=== PATIENT | female | born 1985 | race Caucasian/White ===

== ENCOUNTER 2020-05-09 12:15 | Outpatient (CLI) | payer BC, SELFPAY ==
--- NOTE | ~2020-05-09 | XR_ITS ---
EXAMINATION: XR knee RT 3V DATE: 05/09/2020 12:39 INDICATION: Right knee pain. TECHNIQUE: 3 views of right knee were obtained. COMPARISON: None. FINDINGS: Bone alignment is normal. No fracture. There is mild osteoarthritis of patellofemoral magdalena rtment. No knee joint effusion. IMPRESSION: 1. Mild right knee osteoarthritis. Reviewed, dictated and finalized at location A.
== END 2020-05-09 12:16 | disposition home or self-care (01) ==
PROVIDERS: PCP Internal Medicine; Visit Provider Clinical Nurse Specialist
DX: M17.11 Unilateral primary osteoarthritis, right knee (principal)
CPT/HCPCS: 73562

== ENCOUNTER 2020-09-08 08:30 | Outpatient (RCR) | payer BC, SELFPAY ==
--- NOTE | 2020-08-08 10:33 | PTOPEVAL ---
PHYSICAL THERAPY EVALUATION Thank you for referring Deb Kemp to [facility].? Deb was evaluated today with a dx of right hip pain/ligament sprain. The patient is scheduled to be seen for therapy? 2 x/week for up to 4 weeks. Please review, sign, date and return this plan of care COREY. I agree with and certify that the following plan of care is medically necessary. Referring Physician Date Attending Provider: Lula Anna NP *PT Outpatient Evaluation Start: 08/08/20 09:31 Freq: Status: Active Protocol: Document 08/08/20 09:31 [facility] (Rec: 08/08/20 10:32 [facility] [email or web address]) Evaluation Information Problem Diagnosis right hip strain Onset May 2020 Cause doing hip exercises and had a sudden pain Additional Evaluation Detail After the exercising, she was stiff for a week then it got better but then began with groin pain. Patient has the pain when sitting cross legged or rotating hip. The patient had been doing yoga but cannot do it now due to pain. 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 Subjective Information Patient reports concern Query Text:As Reported By Patient/ regarding the prognosis and Family diagnosis of her hip pain. Pain Assessment Timing of Pain Assessment Timing of Pain Assessment Assessment Pain Scale Pain Scale Used Numeric (1 - 10) Self Report Pain Assessment Right Groin Reported Pain Level 0 Pain Description Pulling,Tightness Pain Frequency Acute Greatest Pain Intensity 3 Pain Score Pain Score 0: Self Report Interventions Used Pain Relief Interventions Used By Inactivity/Rest,Position Patient Change Lower Extremity Range of Motion General Lower Extremity Range of Motion Reason Not Measured WNL/Left,WNL/Right Gross Lower Extremity Range of Motion hamstring SLR test: 72 degrees Comments left, 66 degrees right knee motion left 0-151, right 0-148 Lower Extremity Muscle Strength Testing General Lower Extremity Strength Reason Not Measured WFL/Left,WFL/Right Gross Lower Extremity Strength generalized deconditioning; fatigues with 15 reps of mild resisted hip exercises Special Tests-Lower Extremity Hip Special Tests Hip Scouring Negative Left,Negative Right NOHEMY Negative Left,
--- NOTE | 2020-09-08 09:28 | PTOPEVAL ---
PHYSICAL THERAPY DISCHARGE SUMMARY Thank you for referring Deb Kemp to [facility].? The patient has been seen for therapy?for 8 visits and goals have been met. Physical therapy is discontinued at this time. Please review, sign, date and return this plan of care COREY. I agree with and certify that the following plan of care is medically necessary. Referring Physician Date Attending Provider: Lula Anna NP *PT Outpatient Evaluation Start: 08/08/20 09:31 Freq: Status: Active Protocol: Document 09/08/20 08:30 [facility] (Rec: 09/08/20 09:28 [facility] [email or web address]) Therapy Assessment Status Assessment Status Discharge Pain Assessment Timing of Pain Assessment Timing of Pain Assessment Assessment Pain Scale Pain Scale Used Numeric (1 - 10) Self Report Pain Assessment Right Groin Reported Pain Level 0 Pain Frequency Acute Other Pain Description only with sitting cross legged Greatest Pain Intensity 2 Pain Score Pain Score 0: Self Report Interventions Used Interventions Used By Clinicians Education,Exercise,Ultrasound Pain Relief Interventions Used By Exercise,Position Change Patient Lower Extremity Range of Motion General Lower Extremity Range of Motion Gross Lower Extremity Range of Motion hamstring SLR test: 72 degrees Comments left, 70 degrees right knee motion left 0-151, right 0-152 Lower Extremity Muscle Strength Testing General Lower Extremity Strength Gross Lower Extremity Strength improved muscle endurance- tolerating 20 reps 2 sets of green tband exercises without visible signs of muscle fatigue. Patient has written exercises-compliance questionable General Exercise General Exercises Exercise Description completed all exercises with Query Text:Record Sets, Reps, green tband x 20 reps as on Resistance, and Position written home program. Less cues required Exercise Comments extensive education for importance of continuing/ compliance with exercises to further develop hip stability to prevent recurring issues. PT Clinical Summary Mrs. Moncada is a 35 y/o female with a dx of left hip/groin sprain. The patient has completed 8 treatments for modalities and exercises for left hip. Pain has decreased,
--- NOTE | 2020-11-19 15:17 | PCPTNOTE ---
Patient was seen on 08/22 and 08/27 with charges entered incorrectly for the US combo treatment. The note is written for US combo and the charge should have been entered as US combo for 1 unit at 10 minutes- both days. The patient charge for 09/05 was also incorrect. On 09/05 the patient was seen for US combo and charged for this but it was not documented in the body of the note. It should be entered as: US combo at 1.5 for 10 minutes as done on prior treatments.
== END 2020-09-08 13:31 | disposition home or self-care (01) ==
LOC: ANHPT 08:30
PROVIDERS: PCP Internal Medicine; Visit Provider Nurse Practitioner
DX: M25.551 Pain in right hip (principal)
CPT/HCPCS: 97032; 97035; 97110; 97161

== ENCOUNTER 2021-08-13 14:12 | Outpatient (CLI) | payer BC, SELFPAY ==
[2021-08-13 14:29] LABS: Basophils Percent Auto 0.7 % (0.2-1.2); Eosinophils Absolute Auto 0.1 K/mm3 (0-0.3); Eosinophils Percent Auto 1.6 % (0-4.4); Hematocrit 40.2 % (37.0-47.0); Hemoglobin 13.3 g/dL (12.0-15.0); Immature Granulocyte Absolute 0.01 K/mm3 (0.00-0.031); Immature Granulocyte Percent A 0.2 % (0-0.5); Lymphocytes Percent Auto 24.5 % (18.3-44.2); Mean Corpuscular HGB Conc 33.1 g/dl (32-36); Mean Corpuscular Hemoglobin 30.5 pg (26-34); Mean Corpuscular Volume 92.2 fl (80-100); Mean Platelet Volume 10.3 fl (7.4-10.4); Monocytes Absolute Auto 0.5 K/mm3 (0.1-0.6); Monocytes Percent Auto 8.8 % (2.6-8.5); Neutrophils Absolute Auto 3.9 K/mm3 (1.3-6.7); Neutrophils Percent Auto 64.2 % (45.5-73.1); Platelet Count Result 255 k/mm3 (150-375); Red Blood Count 4.36 M/mm3 (4.2-5.4); Red Cell Distribution Width 12.5 % (11.5-14.5); White Blood Count 6.1 K/mm3 (4.5-10.0)
[2021-08-13 14:40] LABS: Alanine Aminotransferase 14 U/L (4-35); Albumin Level 4.6 g/dL (3.5-5.1); Alkaline Phosphatase 62 U/L (38-126); Anion Gap 12 mmol/L (8-16); Aspartate Amino Transferase 21 U/L (14-36); Bilirubin,Total 0.4 mg/dL (0.2-1.3); Blood Urea Nitrogen 11 mg/dL (7-17); Carbon Dioxide 26 mmol/L (22-30); Chloride 103 mmol/L (98-107); Cholesterol 162 mg/dL (0-200); Estimated Glomerular Filt Rate > 60; Glucose 89 mg/dL (65-110); HDL Direct 65 mg/dL; Sodium 141 mmol/L (137-145); Triglycerides 103 mg/dL (<150)
[2021-08-13 14:51] LABS: LDL Cholesterol Direct 79 mg/dL
== END 2021-08-13 14:13 | disposition home or self-care (01) ==
LOC: ANHLAB 14:14
PROVIDERS: PCP Internal Medicine; Visit Provider Nurse Practitioner
DX: Z13.228 Encounter for screening for other metabolic disorders (principal); Z13.220 Encounter for screening for lipoid disorders
CPT/HCPCS: 36415; 80053; 80061; 85025

== ENCOUNTER → 2021-10-07 08:29 | Outpatient (CLI) | payer BC, SELFPAY ==
[2021-10-08 02:21] LABS: SARS-CoV-2 RNA PCR Negative
== END ==
PROVIDERS: PCP Internal Medicine; Visit Provider Internal Medicine
DX: Z20.822 Contact with and (suspected) exposure to COVID-19 (principal)
CPT/HCPCS: C9803; U0003; U0005

== ENCOUNTER 2022-08-27 11:28 | Outpatient (CLI) | payer BC, SELFPAY ==
[2022-08-27 11:55] LABS: Basophils Percent Auto 0.8 % (0.2-1.2); Eosinophils Absolute Auto 0.1 K/mm3 (0-0.3); Eosinophils Percent Auto 1.4 % (0-4.4); Hematocrit 38.6 % (37.0-47.0); Hemoglobin 12.9 g/dL (12.0-15.0); Lymphocytes Absolute Auto 1.81 K/mm3 (0.9-3.2); Lymphocytes Percent Auto 36.3 % (18.3-44.2); Mean Corpuscular HGB Conc 33.4 g/dl (32-36); Mean Corpuscular Hemoglobin 29.7 pg (26-34); Mean Corpuscular Volume 88.7 fl (80-100); Mean Platelet Volume 10.1 fl (7.4-10.4); Monocytes Absolute Auto 0.5 K/mm3 (0.1-0.6); Monocytes Percent Auto 9.6 % (2.6-8.5); Neutrophils Absolute Auto 2.6 K/mm3 (1.3-6.7); Neutrophils Percent Auto 51.9 % (45.5-73.1); Platelet Count Result 252 k/mm3 (150-375); Red Blood Count 4.35 M/mm3 (4.2-5.4); Red Cell Distribution Width 12.3 % (11.5-14.5)
[2022-08-27 12:10] LABS: Alanine Aminotransferase 19 U/L (6-35); Albumin Level 4.6 g/dL (3.5-5.1); Alkaline Phosphatase 54 U/L (38-126); Anion Gap 13 mmol/L (8-16); Aspartate Amino Transferase 23 U/L (14-36); Bilirubin,Total 0.4 mg/dL (0.2-1.3); Blood Urea Nitrogen 10 mg/dL (7-17); Carbon Dioxide 27 mmol/L (22-30); Chloride 101 mmol/L (98-107); Cholesterol 194 mg/dL (0-200); Estimated Glomerular Filt Rate > 60; Glucose 90 mg/dL (65-110); HDL Direct 69 mg/dL; Potassium 3.8 mmol/L (3.4-5.0); Sodium 141 mmol/L (137-145); Triglycerides 73 mg/dL (<150)
[2022-08-27 12:21] LABS: LDL Cholesterol Direct 80 mg/dL
== END 2022-08-27 11:29 | disposition home or self-care (01) ==
LOC: ANHLAB 11:30
PROVIDERS: PCP Internal Medicine; Visit Provider Internal Medicine
DX: F41.9 Anxiety disorder, unspecified (principal); F32.A Depression, unspecified; Z13.0 Encounter for screening for diseases of the blood and blood-forming organs and certain disorders involving the immune mechanism; Z13.228 Encounter for screening for other metabolic disorders; Z13.29 Encounter for screening for other suspected endocrine disorder
CPT/HCPCS: 36415; 80053; 80061; 84443; 85025

== ENCOUNTER 2022-08-31 09:39 | Outpatient (CLI) | payer BC, SELFPAY | END 2022-08-31 09:40 | disposition home or self-care (01) | LOC: ANHGOSHLAB 09:40 | PROVIDERS: PCP Internal Medicine; Visit Provider Internal Medicine | DX: E55.9 Vitamin D deficiency, unspecified (principal) | CPT/HCPCS: 36415; 82306 ==

== ENCOUNTER → 2022-12-10 14:52 | Outpatient (CLI) | payer BC, SELFPAY ==
--- NOTE | ~2022-12-10 | MM_ITS ---
EXAMINATION: MM screening gavino BI w marli HISTORY: Screening TECHNIQUE: Craniocaudal and mediolateral oblique 3-D tomosynthesis images were obtained and synthetic 2-D images were generated. CAD analysis was submitted and interpreted. COMPARISON: No prior mammogram is available for comparison at this institution. BREAST PARENCHYMAL COMPOSITION: The breasts are heterogeneously dense, which may obscure small masses . FINDINGS: There is no evidence of suspicious mass, calcification, or architectural distortion to sugg est malignancy in either breast. There has been no suspicious interval change. IMPRESSION: 1. No mammographic evidence of malignancy. 2. Recommend routine screening mammography in one year. BI-RADS Category 1: Negative Reviewed, dictated and finalized at location B. T CHECKER
== END ==
PROVIDERS: PCP Internal Medicine; Visit Provider Nurse Practitioner Obstetrics & Gynecology
DX: Z12.31 Encounter for screening mammogram for malignant neoplasm of breast (principal)
CPT/HCPCS: 77063; 77067